=== PATIENT | female | born 1945 | race Caucasian/White ===

== ENCOUNTER 2017-12-22 13:37 | Observation (INO) | payer MEDICARE, OTHER ==
[~2017-12-22] VITALS: Ht 162.6 cm; Wt 78.1 kg
[~2017-12-22 13:37] MED LIST: ATARAX 25MG25 MG PO; ATORVASTATIN CA20 MG PO; CEFTRIAXON1 GM/50 M2 IV; DECARA25000 UNIT PO; DIGOXIN125 MCG PO; KEFLEX500 MG PO; LEVAQUIN500 MG PO; LOSARTAN POTASS25 MG PO; LOVENOX40 MG/0.4 SC; LUBRIDERM; NUEDEXTA 20-101 EACH; NYAMYC15 GM TOP; ONDANSETRON4 MG/2 M1 IV; RISPERDAL0.5 MG PO; TRAMADOL HCL-A1 EAC1; ULTRAM50 MG PO; Z.0.ATIVAN0.5 MG PO; Z.0.AVAPRO150 MG PO; Z.0.AVAPRO300 MG PO; Z.0.COREG25 MG PO; Z.0.FUROSEMIDE40 MG PO; Z.0.K DUR10 MEQ PO; Z.0.LASIX20 MG; Z.0.NEXIUM40 MG PO; Z.0.VICODIN 5-5001 E PO; ZOLOFT50 MG PO; [UNRECOGNIZED DRUG - OTHER] PO
[2017-12-22 15:06] LABS: BILIRUBIN,URINE NEGATIVE (NEGATIVE); CLARITY,URINE CLEAR (CLEAR); COLOR,URINE YELLOW (YELLOW); KETONES,URINE NEGATIVE (NEGATIVE); LEUKOCYTE ESTERASE ,URINE NEGATIVE (NEGATIVE); NITRITE,URINE NEGATIVE (NEGATIVE); PROTEIN,URINE DIPSTICK NEGATIVE (NEGATIVE); URINE UROBILINOGEN 0.2 mg/dL (0.2 - 1)
[2017-12-22 15:15] LABS: BACTERIA,URINE FEW /HPF; EPITHELIAL CELLS,URINE MANY /LPF; WBC,URINE (MAN) 0-5 /HPF (0-5)
--- NOTE | 2017-12-22 15:19 | Diagnostic Imaging Report ---
PROCEDURE:X-RAY CHEST, ONE VIEW COMPARISON:Patients [facility], DX, CHEST SINGLE (PORTABLE), 05/22/2016, 13:28. Patients [facility], DX, CHEST SINGLE (PORTABLE), 04/16/2017, 21:28. INDICATIONS:Right side chest pain FINDINGS: Pacemaker wires terminate in the right atrium, right ventricle, and coronary sinus. Pacemaker battery pack is in the right chest wall. Round nodule in the lateral left upper lobe measures 4 mm and is grossly stable. Mild apical pleural parenchymal thickening is stable. Pulmonary vascular markings are normal. The heart is top normal in size. Aortic ectasia is stable. No pleural effusion or pneumothorax. The bones are diffusely demineralized. Surgical clips in the left axilla are stable. A prominent left nipple or calcification in the left breast is stable. CONCLUSION: No acute cardiopulmonary abnormality. Stable chest. Dictated by: Teresas Faustin M.D. on 12/22/2017 at 15:22 Electronically approved by: Teressa Faustin M.D. on 12/22/2017 at 15:22
[2017-12-22 15:30] LABS: BASOPHILS # (AUTO) 0.1 (0.0-0.1); BASOPHILS % 1.2 % (0.0-1.0); EOSINOPHILS # (AUTO) 0.1 (0.0-0.4); EOSINOPHILS % 1.6 % (0.0-6.0); HEMATOCRIT 42.3 % (34.2-44.1); HEMOGLOBIN 13.7 g/dL (12.0-16.0); LYMPHOCYTES # (AUTO) 2.8 (1.0-3.2); LYMPHOCYTES % 36.4 % (18.0-39.1); MEAN CORPUSCULAR HGB CONC 32.4 g/dL (31-35); MEAN CORPUSCULAR VOLUME 89.4 fL (81-99); MONOCYTES # (AUTO) 0.4 (0.2-0.8); MONOCYTES % 5.3 % (4.4-11.3); NEUTROPHILS # (AUTO) 4.2 (2.1-6.9); NEUTROPHILS % 55.1 % (38.7-80.0); PLATELET COUNT 197 x10e3/uL (140-360); RED BLOOD COUNT 4.73 x10e6/uL (3.6-5.1); RED CELL DISTRIBUTION WIDTH 15.6 % (11.7-14.4)
[2017-12-22 17:27] LABS: INR 1.13; PROTHROMBIN TIME 13.6 seconds (11.9-14.5)
[2017-12-22 17:28] LABS: PARTIAL THROMBOPLASTIN TIME 28.1 seconds (23.8-35.5)
[2017-12-22 17:35] LABS: ALANINE AMINOTRANSFERASE 14 IU/L (0-55); ALBUMIN 3.6 g/dL (3.5-5.0); ALBUMIN/GLOBULIN RATIO 1.1 (0.8-2.0); ALKALINE PHOSPHATASE 106 IU/L (40-150); ANION GAP 15.3 mmol/L (8-16); BLOOD UREA NITROGEN 14 mg/dL (7-26); BUN/CREATININE RATIO 16 (6-25); CALCIUM 9.6 mg/dL (8.4-10.2); CARBON DIOXIDE 21 mmol/L (22-29); CHLORIDE 109 mmol/L (98-107); CREATINE KINASE 23 IU/L (29-168); CREATININE, SERUM 0.85 mg/dL (0.57-1.11); EST GLOMERULAR FILTRATION RATE > 60 ML/MIN (60-); GLUCOSE 90 mg/dL (74-118); POTASSIUM 4.3 mmol/L (3.5-5.1); SODIUM 141 mmol/L (136-145)
--- NOTE | 2017-12-22 19:34 | Consultation ---
DATE OF CONSULTATION: December 22, 2017 CARDIOLOGY CONSULTATION REASON FOR CONSULTATION: Chest pressure, chest tightness. HISTORY: This is a 71-year-old lady who is known with longstanding history of left ventricular dysfunction of many years duration. She had biventricular ICD placement with RANGE AIDE treatment on September 23, [address] [facility] [place] device. She does have also history of hypertension, hypercholesterolemia, prior myocardial infarction, neurofibromatosis, left breast cancer status post surgery, depression and dementia and possible psychosis, low back pain, and she is very forgetful. She moved to assisted living place. She is doing relatively well over there. However, she called our office complaining of severe chest pain. She does have also shortness of breath. She came to the emergency room. She was seen in the emergency room with her daughter at bedside. Apparently patient apparently having repeated episodes of severe chest tightness, pressure and she is not feeling well and cannot breathe. She said she does have easy fatigability and shortness of breath on exertion. Activities are quite limited and she needs wheelchair to move around. She does have "arthritis bag knees". She is forgetful. She does have chest pressure, chest tightness, progressively worse over the last few months. It is very bad in the last couple of days or so. There is some orthopnea but no paroxysmal nocturnal dyspnea. There is no syncope or presyncope. CURRENT MEDICATIONS: Includes Lipitor 40 mg a day. Coreg 12.5 mg twice a day. Lasix 20 mg a day. Digoxin 0.125 mg a day. Furosemide 20 mg daily. Potassium chloride 10 mEq a day. Risperidone 0.5 mg nightly. Sertraline 50 mg a day. Aricept 10 mg a day. Nuedexta 20/10 one tablet a day. Prilosec 40 mg a day. ALLERGIES: BENADRYL, DEMEROL AND LEVAQUIN. PAST MEDICAL HISTORY: 1. Congestive heart failure, chronic. Biventricular ICD device on September 23, 2011. 2. Left bundle branch block. 3. Myocardial infarction in 1996. 4. Hypertension. 5. Hypercholesterolemia. 6. Neurofibromatosis. 7. Left breast cancer, status post surgery with partial removal of the breast. 8. Depression. 9. Low back pain neck. 10. Chemotherapy. 11. Exploratory laparotomy. 12. Appendectomy. 13. Hand surgery. SOCIAL HISTORY: She is single, living by herself. She is a nonsmoker and not an alcohol drinker. 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 FAMILY HISTORY: Father of lung cancer in his 70s. Mother at age 56 with hypertension, myocardial infarction. One brother, one sister, and one son and two daughters. Brother with coronary artery disease, half brother of lung cancer. REVIEW OF SYSTEMS: GENERAL: Weakness, debility. HEENT: Decreased hearing. Stuffiness. PULMONARY: Easy fatigability and shortness of breath on exertion. CARDIAC: As per acute illness. GI: Occasional nausea but no vomiting. HEMATOLOGY: Easy bruising but no bleeding. : Incontinence and frequency. MUSCULOSKELETAL: Back pain, knee pain, unable to ambulate. Peripheral vascular swelling of the lower extremity. NEUROLOGY: Now she is using wheelchair to walk. PSYCHIATRIC: The patient is forgetful and she has depression and possibly some form of psychosis. PHYSICAL EXAMINATION VITALS: Height of 54, weight of 170 pounds. Blood pressure 140/90. Heart rate of 80. Respiratory rate of 18. HEENT: Pupils are equal and reactive. NECK: No elevation of jugular venous pulsation. CHEST: Decreased lung entry, but clear to auscultation and percussion. ICD is noted in place. HEART: PMI at the 5th left intercostal space. Normal 1st and 2nd heart sounds. ABDOMEN: Soft with good bowel sounds. No organomegaly. No abdominal bruits. EXTREMITIES: Mild peripheral edema. NEUROLOGIC: Weakness of the lower extremities but no localized deficit. LABORATORY DATA: BNP of 344. Sodium 141. Potassium 4.3. BUN of 14, creatinine of 0.9. PT of 13.6 seconds and PTT of 28. Second white blood cell count of 7.7, hemoglobin 13.7 and hematocrit 42%, platelet count 197. IMAGING: Chest x-ray showing mild cardiomegaly but no volume overload. IMPRESSION: 1. Admission with chest pain in unstable fashion, possible unstable coronary syndrome. 2. Chronic systolic heart failure seems to be compensated. 3. ICD. 4. Hypertension. 5. Hypercholesteremia. 6. Forgetful. 7. Debility. 8. Severe degenerative joint disease of the lower extremities, etc. Cardiac-gurrola recommendation will be as follows: 1. Serial cardiac enzymes to rule out myocardial infarction. 2. Echocardiogram. 3. Nuclear stress test will be scheduled tomorrow providing the cardiac enzymes are not elevated. 4. Continuation of anti-failure therapy. 5. DVT prophylaxis. 6. The patient will be followed with you. I would like to thank you for your kind referral. Job#: [id number] ROBERTA
--- NOTE | 2017-12-22 21:15 | Diagnostic Imaging Report ---
EXAM: Right Upper Quadrant Ultrasound INDICATION: \S\RUQ PAIN \S\[id number] \S\2019 \S\Y COMPARISON: None. TECHNIQUE: Transverse and longitudinal images of the right upper abdomen were obtained. FINDINGS: Liver: Size: 15.1 cm in the right midclavicular line, normal Appearance: Normal echogenicity, smooth contour Mass: No focal masses Gallbladder: Stones/Sludge: No gallstone. Gallbladder polyp versus dependent sludge measuring 0.7 cm and 0.4 cm. Wall: 0.2 cm Appearance: No pericholecystic fluid. Distended gallbladder. Sonographic Weller's Sign: Negative Bile Ducts: Intrahepatic Ducts: No dilatation Extrahepatic Ducts: Common bile duct measures 0.6 cm, no dilatation Pancreas: Limited visualized pancreas is unremarkable. Right Kidney: Size: 8.8 cm Echogenicity: Increased Parenchymal thickness: Normal Collecting system: No hydronephrosis Stones: None Cyst/Mass: None Vessels: Aorta: Visualized portions are normal Inferior Vena Cava: Visualized portions are normal Main Portal Vein: 0.8 cm, normal size with hepatopetal flow. Free Fluid: No ascites or pleural effusion IMPRESSION: 1. Gallbladder is distended without evidence of cholelithiasis. There are gallbladder polyps versus sludge balls, measuring up to 0.7 cm. Recommend follow-up in one year to ensure stability. 2. Increased right renal cortical echogenicity, suggestive of medical renal disease. Signed by: Dr. Trace Mcknight MD on 12/22/2017 9:11 PM
[2017-12-22] MEDS ORDERED: ONDANSETRON HCL INJ 2 MG/ML VIAL IV PRN (22:30)
[2017-12-22] MEDS ORDERED: ASPIRIN 81 MG CHEW TAB PO ONE (22:30)
[2017-12-23] VITALS: BP 150/94
[2017-12-23] MEDS ORDERED: TRAMADOL HCL 50 MG TAB PO PRN ×2 (01:15→07:30)
[2017-12-23] MEDS: ACETAMINOPHEN/CODEINE 300MG - 30MG TAB PO PRN ×2 (01:38→22:40)
[2017-12-23] MEDS ORDERED: ARICEPT5 MG PO (02:50)
[2017-12-23] MEDS ORDERED: FAMOTIDINE20 MG PO (02:51)
[2017-12-23] MEDS ORDERED: POTASSIUM CHLO10 ME1 PO (02:52)
[2017-12-23] MEDS ORDERED: SENNA LAX8.6 MG (02:52)
[2017-12-23] MEDS ORDERED: MAPAP325 MG (02:53)
[2017-12-23] MEDS ORDERED: MELATONIN3 MG PO (02:54)
[2017-12-23 04:00] VITALS: BP 150/85
[2017-12-23 06:09] LABS: BASOPHILS # (AUTO) 0.1 (0.0-0.1); BASOPHILS % 1.1 % (0.0-1.0); EOSINOPHILS # (AUTO) 0.2 (0.0-0.4); EOSINOPHILS % 2.3 % (0.0-6.0); HEMATOCRIT 38.4 % (34.2-44.1); HEMOGLOBIN 12.5 g/dL (12.0-16.0); LYMPHOCYTES # (AUTO) 3.2 (1.0-3.2); MEAN CORPUSCULAR HEMOGLOBIN 28.6 pg (28-32); MEAN CORPUSCULAR HGB CONC 32.6 g/dL (31-35); MEAN CORPUSCULAR VOLUME 87.9 fL (81-99); MONOCYTES # (AUTO) 0.6 (0.2-0.8); MONOCYTES % 7.3 % (4.4-11.3); NEUTROPHILS # (AUTO) 3.6 (2.1-6.9); NEUTROPHILS % 47.2 % (38.7-80.0); PLATELET COUNT 152 x10e3/uL (140-360); RED BLOOD COUNT 4.37 x10e6/uL (3.6-5.1); RED CELL DISTRIBUTION WIDTH 15.3 % (11.7-14.4)
[2017-12-23 06:27] LABS: ALANINE AMINOTRANSFERASE 12 IU/L (0-55); ALBUMIN 3.3 g/dL (3.5-5.0); ALBUMIN/GLOBULIN RATIO 1.1 (0.8-2.0); ALKALINE PHOSPHATASE 95 IU/L (40-150); ANION GAP 11.9 mmol/L (8-16); BLOOD UREA NITROGEN 13 mg/dL (7-26); BUN/CREATININE RATIO 17 (6-25); CALCIUM 9.2 mg/dL (8.4-10.2); CARBON DIOXIDE 26 mmol/L (22-29); CHLORIDE 107 mmol/L (98-107); CHOLESTEROL 109 MD/DL (0-199); CREATININE, SERUM 0.78 mg/dL (0.57-1.11); EST GLOMERULAR FILTRATION RATE > 60 ML/MIN (60-); GLUCOSE 76 mg/dL (74-118); HDL CHOLESTEROL 36 MG/DL (40-60); LDL CHOLESTEROL 58 MG/DL (60-130); LIPASE 9 U/L (8-78); MAGNESIUM 1.9 MG/DL (1.3-2.1); POTASSIUM 3.9 mmol/L (3.5-5.1); SODIUM 141 mmol/L (136-145); TRIGLYCERIDES 73 MG/DL (0-149)
[2017-12-23 06:38] LABS: CREATINE KINASE 19 IU/L (29-168)
[2017-12-23 06:43] LABS: B-TYPE NATRIURETIC PEPTIDE2 713.5 pg/mL (0-100)
[2017-12-23 06:48] LABS: FREE T4 (FREE THYROXINE) 0.97 ng/dL (0.9-1.8); THYROID STIMULATING HORMONE 1.712 uIU/mL (0.350-4.940)
[2017-12-23 07:00] VITALS: BP 143/84
[2017-12-23 08:00] VITALS: BP 143/84
--- NOTE | 2017-12-23 08:29 | History and Physical ---
PRIMARY CARE PHYSICIAN: Shane POLE PEELING MACHINE OPERATOR HELPER: Dr. Clark CHIEF COMPLAINT: Chest tightness. HISTORY OF PRESENT ILLNESS: This is a 72-year-old woman with a history of breast cancer and atrial fibrillation, now developing right-sided chest tightness with associated shortness of breath. She denies any dizziness or nausea. The patient had an episode of diarrhea. Currently, she feels better. Stress test has been ordered by Dr. Clark. PAST MEDICAL HISTORY: Breast cancer, cranial nerve lesion, status post resection, fall, dementia, atrial fibrillation, GERD, urinary tract infection. PAST SURGICAL HISTORY: Permanent pacemaker placement in August 2011, 5th cranial nerve lesion resection, appendectomy. ALLERGIES: PER ELECTRONIC MEDICAL RECORDS. FAMILY HISTORY/SOCIAL HISTORY: Patient is . Has 5 children. No alcohol, illicits or cigarettes. MEDICATIONS: Per electronic medical record. REVIEW OF SYSTEMS: Denies any dizziness, chest pain, shortness of breath, fever, chills, nausea, vomiting, leg pain, back pain, blurred vision, tinnitus. PHYSICAL EXAMINATION VITAL SIGNS: Have been reviewed. GENERAL: A tired-appearing woman resting in bed. HEENT: Anicteric. Pupils respond to light. No oral lesions. CARDIOVASCULAR: Normal S1 and S2. LUNGS: Moderate breath sounds. ABDOMEN: Soft and nondistended. She has mild epigastric discomfort. Negative Weller's sign. EXTREMITIES: No edema or calf tenderness. NEUROLOGICAL: Alert and appropriate. Moving all extremities. SKIN: Dry. PSYCHIATRIC: Flat affect. LABS: Reviewed. MEDICATIONS: Reviewed. ASSESSMENT: This is a 72-year-old woman with: 1. Chest pain. 2. Obesity. 3. Gastroesophageal reflux disease. 4. Atrial fibrillation. 5. Dementia. 6. Prediabetes. 7. Congestive heart failure with elevated brain natriuretic peptide. PLAN 1. Follow up stress test this morning. 2. Cardiac enzymes are negative so far. 3. Continue beta jyoti. Add aspirin. 4. LDL 58 and triglycerides 73. Hemoglobin A1c 5.7. 5. Prediabetes. Hemoglobin A1c 5.7. Needs caloric restriction and weight loss over the next 3 months and retesting. 6. Follow up echocardiogram with elevated BNP and positive for CHF. 7. Continue with PPI. Add Lovenox. 8. Disposition. Follow up stress test. Job#: [id number] [place]
[2017-12-23] MEDS: CARVEDILOL 12.5 MG TAB PO SCH (08:47)
[2017-12-23] MEDS: FUROSEMIDE 20 MG TAB PO SCH (08:47)
[2017-12-23] MEDS: ASPIRIN 325 MG TAB PO SCH (08:47)
[2017-12-23] MEDS: DIGOXIN 0.125 MG TAB PO SCH (08:47)
[2017-12-23] MEDS: SENNOSIDES 8.6 MG TAB PO SCH (08:48)
[2017-12-23] MEDS: PANTOPRAZOLE SOD 40 MG TABEC PO SCH (08:48)
[2017-12-23] MEDS: SERTRALINE HCL 50 MG TAB PO SCH (08:48)
[2017-12-23] MEDS ORDERED: FAMOTIDINE 20 MG TAB PO SCH (09:00)
[2017-12-23] MEDS ORDERED: PANTOPRAZOLE 40 MG 10ML VIAL IV SCH (09:00)
[2017-12-23] MEDS ORDERED: NON-FORMULARY MEDICATION (Esomeprazole Mag Trihydrate (Nexium) 40 MG) PO SCH (09:00)
[2017-12-23] MEDS ORDERED: NON-FORMULARY MEDICATION (Carvedilol (Coreg) 12.5 MG) PO SCH (09:00)
[2017-12-23] MEDS ORDERED: FUROSEMIDE 40 MG TAB PO SCH (09:00)
[2017-12-23] MEDS ORDERED: REGADENOSON 0.4 MG/5 ML SYR IV ONE (10:18)
[2017-12-23 15:48] LABS: CREATINE KINASE 24 IU/L (29-168)
[2017-12-23 16:29] VITALS: BP 151/87
[2017-12-23 20:00] VITALS: BP 134/80
[2017-12-23] MEDS ORDERED: ATORVASTATIN 20 MG TAB PO SCH (21:00)
[2017-12-23] MEDS ORDERED: ATORVASTATIN 40 MG TAB PO SCH (21:00)
[2017-12-23] MEDS ORDERED: DONEPEZIL HCL 5 MG TAB PO SCH (21:00)
[2017-12-23] MEDS ORDERED: RISPERIDONE 0.5 MG TAB PO SCH (21:00)
[2017-12-23] MEDS ORDERED: MELATONIN 3 MG TAB PO SCH (21:00)
[2017-12-24] VITALS: BP 146/88
[2017-12-24 04:00] VITALS: BP 141/80
[2017-12-24] MEDS: ACETAMINOPHEN/CODEINE 300MG - 30MG TAB PO PRN (05:40)
[2017-12-24 06:33] LABS: ANION GAP 13.9 mmol/L (8-16); BLOOD UREA NITROGEN 17 mg/dL (7-26); BUN/CREATININE RATIO 22 (6-25); CALCIUM 9.2 mg/dL (8.4-10.2); CARBON DIOXIDE 23 mmol/L (22-29); CHLORIDE 109 mmol/L (98-107); CREATININE, SERUM 0.79 mg/dL (0.57-1.11); EST GLOMERULAR FILTRATION RATE > 60 ML/MIN (60-); GLUCOSE 100 mg/dL (74-118); POTASSIUM 3.9 mmol/L (3.5-5.1); SODIUM 142 mmol/L (136-145)
[2017-12-24 07:19] LABS: BASOPHILS # (AUTO) 0.1 (0.0-0.1); EOSINOPHILS # (AUTO) 0.2 (0.0-0.4); EOSINOPHILS % 2.9 % (0.0-6.0); HEMATOCRIT 40.8 % (34.2-44.1); HEMOGLOBIN 13.2 g/dL (12.0-16.0); LYMPHOCYTES # (AUTO) 2.8 (1.0-3.2); MEAN CORPUSCULAR HEMOGLOBIN 28.8 pg (28-32); MEAN CORPUSCULAR HGB CONC 32.4 g/dL (31-35); MEAN CORPUSCULAR VOLUME 88.9 fL (81-99); MONOCYTES # (AUTO) 0.5 (0.2-0.8); MONOCYTES % 6.8 % (4.4-11.3); NEUTROPHILS # (AUTO) 3.3 (2.1-6.9); NEUTROPHILS % 48.2 % (38.7-80.0); PLATELET COUNT 152 x10e3/uL (140-360); RED BLOOD COUNT 4.59 x10e6/uL (3.6-5.1); RED CELL DISTRIBUTION WIDTH 15.2 % (11.7-14.4)
[2017-12-24 07:40] VITALS: BP 133/70
[2017-12-24] MEDS: CARVEDILOL 12.5 MG TAB PO SCH (08:18)
[2017-12-24] MEDS: PANTOPRAZOLE SOD 40 MG TABEC PO SCH (08:18)
[2017-12-24] MEDS: ASPIRIN 325 MG TAB PO SCH (08:18)
[2017-12-24] MEDS: FUROSEMIDE 20 MG TAB PO SCH (08:18)
[2017-12-24] MEDS: SERTRALINE HCL 50 MG TAB PO SCH (08:18)
[2017-12-24] MEDS: SENNOSIDES 8.6 MG TAB PO SCH (08:18)
[2017-12-24] MEDS: DIGOXIN 0.125 MG TAB PO SCH (08:18)
[2017-12-24 11:25] VITALS: BP 121/66
--- NOTE | 2017-12-24 13:05 | Cardiology Report ---
DATE OF STUDY: December 23, 2017 TITLE OF TEST: Lexiscan cardiac nuclear stress test. TECHNICAL DETAILS: The protocol was resting and stress protocol. For the resting picture, 11 mCi of Myoview were given followed in half an hour with SPECT imaging and processing. For the stress images, a total of 35 mCi were given after the patient was given 0.4 mg of Lexiscan. Repeat scanning and usual processing were done half an hour after the injection. Patient tolerated the Lexiscan stress test. There were no complications. RESULTS A. EKG part of the stress test: Patient does have a normal sinus rhythm with biventricular pacing with marked ST-segment changes at baseline. With Lexiscan injection, no changes were noted. Blood pressure remained stable at 150/90. Heart rate remained stable at 85. B. Nuclear imagin. Perfusion imaging. Perfusion imaging showed marked decreased uptake in the inferior, septal, and lateral segments as well as apical segments. 2. Stress images showed again similar finding in the above segments. There were a few areas of more decreased uptake noted, mainly in the inferior and septal segments. C. Volumes: 1. Left ventricular end-diastolic volume of 130. 2. Left ventricular end-systolic volume of 80. 3. Left ventricular ejection fraction of 40%. D. Segmental wall motion: Abnormal septal, apical and lateral motions noted. IMPRESSION 1. Abnormal nuclear stress test with evidence of mixed scar and ischemia with predominance of scar. 2. Left ventricular wall-motion abnormality with left ventricular ejection fraction of 40%. Job#: [id number]
[2017-12-24] MEDS ORDERED: LASIX40 MG PO (13:14)
[2017-12-24] MEDS ORDERED: POTASSIUM CHLO20 ME1 PO (13:14)
[2017-12-24] MEDS ORDERED: NUEDEXTA 20-101 EACH PO (13:55)
--- NOTE | 2017-12-25 01:31 | Discharge Summary ---
ADMISSION DIAGNOSES 1. Chest pain. 2. Obesity. 3. Gastroesophageal reflux disease. 4. Atrial fibrillation. 5. Dementia. 6. Prediabetes. 7. Congestive heart failure with elevated B-type natriuretic peptide. DISCHARGE DIAGNOSES 1. Chest pain. 2. Obesity. 3. Gastroesophageal reflux disease. 4. Atrial fibrillation. 5. Dementia. 6. Prediabetes. 7. Congestive heart failure with elevated B-type natriuretic peptide. 8. Rule out myocardial infarction. 9. Chronic congestive heart failure. HISTORY: Patient has a history of breast cancer, cranial nerve lesion, status post resection, falls, dementia, AFib, GERD, UTI, chronic CHF, [place] in 1996, hypertension, depression, neurofibromatosis, left breast cancer, status post surgery with partial removal of the breast, depression, low back pain, exploratory laparotomy, appendectomy, hand surgery, permanent pacemaker placement in August 2011. HOSPITAL COURSE: A 72-year-old female, came in complaining of right-sided chest tightness and associated shortness of breath. She denies dizziness and nausea. Patient had an episode of diarrhea. Patient was ordered to have a stress test by Dr. Clark, who has followed the patient for 30 years. Upon admission, patient had an ultrasound of the gallbladder, which showed gallbladder is distended without evidence of cholelithiasis. Chest x-ray which was negative. Cardiac enzymes negative. Patient had a stress test on December 23, that showed an abnormal stress with evidence of mixed scar and ischemia with predominance of scar. Left ventricular wall motion abnormality with left ventricular EF of 40%. Per cardiology, patient can discharge home and follow up outpatient. His only recommendation was to increase the Lasix to 40 mg daily. Patient's daughter is at bedside and explained in detail with discharge instruction. Patient and daughter agreed to discharge. On day of discharge, sodium 142, potassium 3.9, creatinine of 0.79, GFR of over 60. WBC of 6.93, hemoglobin 13.2, hematocrit 40.8. Vital signs stable. Patient afebrile. She will discharge back to the assisted living facility. Dictated by: Kennedi Medeiros NP LILY KINSEY MD Job#: [id number] CQ
== END 2017-12-24 14:50 | disposition home or self-care (01) ==
LOC: ER 13:37 → ERHOLD 22:32 → IMCU 23:58
PROVIDERS: ADMIT Internal Medicine; ATTEND Internal Medicine
DX: R07.9 Chest pain, unspecified (principal); I11.0 Hypertensive heart disease with heart failure; K82.8 Other specified diseases of gallbladder; Z85.3 Personal history of malignant neoplasm of breast; Z95.0 Presence of cardiac pacemaker; K21.9 Gastro-esophageal reflux disease without esophagitis; E66.9 Obesity, unspecified; I48.91 Unspecified atrial fibrillation; F03.90 Unspecified dementia, unspecified severity, without behavioral disturbance, psychotic disturbance, mood disturbance, and anxiety; R73.03 Prediabetes; R53.81 Other malaise; I50.22 Chronic systolic (congestive) heart failure; E78.00 Pure hypercholesterolemia, unspecified; M19.90 Unspecified osteoarthritis, unspecified site; I25.2 Old myocardial infarction; Z68.30 Body mass index [BMI] 30.0-30.9, adult
CPT/HCPCS: 36415 ×3; 71045; 76705; 78452; 80048; 80053 ×2; 80061; 80162; 81001; 82550 ×2; 82553 ×2; 83036; 83690; 83735 ×2; 83880 ×2; 84439; 84443; 84484 ×2; 85025 ×3; 85610; 85730; 93005; 93017; 93306; 93970; 99284; A9502; G0378 ×3; S0164